=== PATIENT | male | born 1975 | race Caucasian/White ===

== ENCOUNTER 2017-04-26 07:58 | Emergency (ER) | payer MEDICARE, MEDICAID ==
[~2017-04-26] VITALS: Ht 165.1 cm; Wt 95.3 kg
[~2017-04-26 07:58] MED LIST: ACETAMINOPHEN325 M2 PO; ASPIRIN 81MG TA81 MG PO; BENZTROPINE1 MG PO; CITALOPRAM20 MG PO; DEPAKOTE 500MG500 MG PO; DEPAKOTE ER500 MG PO; KLONOPIN 0.5MG0.5 MG NG; LISINOPRIL 5MG T5 MG PO; LORAZEPAM1 MG/TABLE PO; LOVAZA1 GM PO; METFORMIN1000 MG PO; METOPROLOL SUCC25 M1 PO; RISPERDAL2 MG PO; RISPERDAL4 M1 PO; RISPERDAL4 MG; SEROQUEL300 MG PO; SIMVASTATIN20 MG PO; TRAZODONE 50MG50 MG PO; VITAMIN D1000 IU PO
[2017-04-26] MEDS ORDERED: DIVALPROEX DR500 MG PO ×2 (08:10)
[2017-04-26] MEDS ORDERED: ASPIRIN ADULT L81 M3 PO (08:11)
[2017-04-26] MEDS ORDERED: RISPERIDONE1 MG PO (08:12)
[2017-04-26] MEDS ORDERED: QUETIAPINE FUM200 MG PO (08:14)
[2017-04-26] MEDS ORDERED: CELEXA20 MG PO (08:15)
--- NOTE | 2017-04-26 08:18 | Emergency Room Report ---
History of Present Illness Time Seen by [id number] Comment The patient states that he slipped in the bathtub 2 days ago and fell landing on his back. He complains of back pain, predominantly in his lower back, but also upper thoracic spine, and RIGHT shoulder pain. He thinks he might have bumped his head. No loss of consciousness, headache, or vomiting. His upper back pain extends slightly into his neck. ALLERGIES Coded Allergies: Penicillins (Mild, 11/13/16) Home Medications Reported Medications TRAZODONE HCL (Trazodone HCl) 100 MG PO QHS Lorazepam (Lorazepam 1MG) 0.5 MG PO BID METFORMIN HCL (Metformin) 1,000 MG PO BID CHOLECALCIFEROL (VITAMIN D3) (Vitamin D3) 50,000 IUNITS PO WEEKLY Divalproex Sodium (Divalproex Dr) 1,000 MG PO QHS Divalproex Sodium (Divalproex Dr) 500 MG PO DAILY Aspirin (Aspirin EC) 81 MG PO DAILY #60 Risperidone 3 MG PO BID Quetiapine Fumarate (Quetiapine 200MG) 200 MG PO QHS CITALOPRAM HYDROBROMIDE (Citalopram HBr) 20 MG PO DAILY LISINOPRIL (Lisinopril) 5 MG PO DAILY OMEGA-3 ACID ETHYL ESTERS (Lovaza) 1 GM PO Metoprolol Succinate Xl (Metoprolol ER 25MG) 25 MG PO DAILY Simvastatin 20 MG PO DAILY History Medical History General CAD? No Angina: No AR: No Hypertension? No Hyperlipidemia? No CHF? No DVT? No PE? No COPD? No Asthma? No Anemia? No GERD? No Gastric ulcers? No GI Bleed? No Hernia? No Thyroid Problems? No Hypothyroidism? No CVA? No Seizures? No Diabetes? No Renal Insuffiency? No End Stage Renal Disease? No UTI? No Stones? No BPH? No GB Disease: No Nephritic Syndrome? No Asplenia? No Hepatitis? No Sickle Cell Disease? No Arthritis? No Migraines? No Cataracts? No Glaucoma? No MRSA? No HIV? No TB? No Anxiety? No Depression? No Cancer? No More? Yes Additional hx: PHYCHOSIS, MR, ATRIAL FLUTTER Immunization Hx DT/Tetanus Unknown Surgical Hx Previous Surgery?Y OPEN HEART 3 YRS. OLD Social History Smoking Hx Smoker: Never Smoker Tobacco: No Alcohol Alcohol: No Review of Systems All Other Systems Reviewed and Negative Gastrointestinal denies abdominal pain, denies vomiting Musculoskeletal back pain, joint pain Physical Exam Vital Signs Vital Signs Date Time Temp Pulse Resp B/P Pulse O2 O2 Flow FiO2 Ox Delivery Rate 04/26 1116 98.0 86 20 107/70 98 04/26 0952 98.0 86 20 107/70 98 04/26 0951 98.0 86 20 107/70 98 04/26 0759 97.9 78 18 138/85 97 General Appearance normal appearance, WD/WN Eye Exam - bilateral eye normal exam, bilateral eye PERRL, bilateral eye EOMI Ear, Nose, Throat hearing grossly normal, normal ENT inspection Neck normal inspection, non-tender, supple, full range of motion Respiratory Status Yes: trachea midline, chest symmetrical, non tender chest. No: respiratory distress. Lung Sounds bilateral: normal breath sounds, lungs clear. Cardiovascular normal exam, regular rate/rhythm, no peripheral edema, no gallop, no JVD, no murmur, no rub, normal peripheral pulses Peripheral Pulses Pulses normal Yes Gastrointestinal normal bowel sounds, normal exam, non tender, soft, no organomegaly Back normal inspection, mild lumbar and thoracic vertebral tenderness Extremities RIGHT shoulder tenderness. Normal range of motion. Neurovascular intact. No edema, ecchymosis, or effusion. 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 No Results/Orders Current Medication Orders Sig/Genevieve Start time Last Medication Dose Route Stop Time Status Admin Sodium Chloride 10 ML PRN PRN 04/26 830 DCD IV 04/27 821 Orders Procedure Date/time Status DIET-NOTHING BY MOUTH 04/26 L Active OP COURTSEY MEAL 04/26 1057 Active ELECTROCARDIOGRAM REQUEST 04/[address] SCAN REQUEST 04/[address] SCAN REQUEST 04/26 822 Active IV SALINE LOCK 04/[address] SCAN REQ 04/26 817 Complete 12 LEAD EKG-AUGUSTO (INITIAL) 04/26 UNK Active CM/EKG CM/EKG Comments EKG interpreted by Ray Tate MD: Rhythm: sinus Rate: 84 [place]on: normal Ectopy: none Conduction: Incomplete RIGHT bundle branch block ST Segment Changes: none T Wave Changes: none Q Waves: none No evidence of acute ischemia or injury Baseline artifact and wander present XRAY/CT/US XRAY/CT/US XRAY chest, pelvis, shoulder Comment Pelvis X-ray interpreted by Ray Tate MD. Negative for fracture, dislocation, or foreign body. Shoulder X-ray interpreted by Ray Tate MD. Negative for fracture, dislocation, or foreign body. Chest x-ray interpreted by Ray Tate M.D. No infiltrate, pneumothorax, pleural effusion, or wide mediastinum. CT C-spine, T-spine, L-spine Comment CT scan interpreted by radiologist: Cervical spine: No acute fracture. Mild cervical spondylosis. 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 Thoracic spine: No acute fracture. Spondylosis with degenerative disc disease and osteophytes. Lumbar spine: No acute fracture. Mild lumbar spondylosis. Degenerative disc disease L5-S1. Departure Departure Disposition DC Home or Self Care(routine) Clinical Impression Primary Impression: Lumbar strain Qualifiers: Encounter type: initial encounter Qualified Code: S39.012A - Strain of muscle, fascia and tendon of lower back, initial encounter Secondary Impressions: Cervical strain Qualifiers: Encounter type: initial encounter Qualified Code: S16.1XXA - Strain of muscle, fascia and tendon at neck level, initial encounter Fall in bathtub Qualifiers: Encounter type: initial encounter Qualified Code: W18.2XXA - Fall in (into) shower or empty bathtub, initial encounter Right shoulder strain Qualifiers: Encounter type: initial encounter Qualified Code: S46.911A - Strain of unspecified muscle, fascia and tendon at shoulder and upper arm level, right arm, initial encounter Thoracic myofascial strain Qualifiers: Encounter type: initial encounter Qualified Code: S29.019A - Strain of muscle and tendon of unspecified wall of thorax, initial encounter Condition STABLE Referrals Juni GALEANO,Franco Mcintyre (PCP/Family) Additional Instructions Tylenol for pain. Additional instructions for TRAUMA: See your physician as needed for further evaluation. Return to the emergency department immediately if severe chest pain, shortness of breath, abdominal pain , vomiting, severe neck pain, and this or weakness of arms or legs. ED Critical Care Critical Care No at 1125
--- NOTE | 2017-04-26 09:04 | RADIOLOGY REPORT PS360 ---
CT CERVICAL SPINE W/O CONT INDICATION: Neck pain following injury NECK AND BACK PAIN, RECENT FALL ORDERING PHYSICIAN: Ray Tate MD PATIENT AGE: 42 years COMPARISON: None TECHNIQUE: Axial images are obtained without contrast. Sagittal and coronal reformatted images are reviewed as well. FINDINGS: There is normal alignment. There is straightening of the cervical lordosis which may be due to patient positioning or muscle spasm. A defect is present in the posterior ring of C1. This is well-circumscribed and appears congenital. There is generalized spondylosis of the cervical spine with degenerative disc disease and facet and uncovertebral hypertrophy. C2-C3: Mild uncovertebral hypertrophy bilaterally with minimal right-sided foraminal narrowing. C3-C4: Minimal endplate osteophyte. C4-C5: Mild bilateral foraminal narrowing from uncovertebral hypertrophy. C5-C6: Mild degenerative disc disease. C6-C7: Mild degenerative disc disease with mild right lateral recess and foraminal narrowing from uncovertebral hypertrophy. No fracture or dislocation is evident. No lytic or blastic change. No prevertebral soft tissue swelling. There are scattered small lymph nodes in the neck. Lung apices are clear. IMPRESSION: 1. No acute fracture. 2. Mild cervical spondylosis as detailed above 3. Slight reversal cervical lordosis which may be due to patient positioning or muscle spasm. 4. 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
--- NOTE | 2017-04-26 09:07 | RADIOLOGY REPORT PS360 ---
CT THORACIC SPINE W/O CONTRAST INDICATION: Thoracic pain following injury NECK AND BACK PAIN, RECENT FALL ORDERING PHYSICIAN: Ray Tate MD PATIENT AGE: 42 years COMPARISON: None TECHNIQUE: Axial images are obtained without contrast. Sagittal and coronal reformatted images are reviewed as well. FINDINGS: There is normal alignment. No acute fracture or dislocation is evident. There is mild dextroscoliosis of the midthoracic spine. Multilevel osteophyte formation from T3 to T10 most severe at the T6-T10 level. There is mild degenerative disc disease in the mid and lower thoracic spine. No lytic or blastic change apparent. No paraspinal mass. IMPRESSION: 1. No acute fracture. 2. Thoracic spondylosis with degenerative disc disease and osteophytosis
--- NOTE | 2017-04-26 09:10 | RADIOLOGY REPORT PS360 ---
CT LUMBAR SPINE W/O CONTRAST CLINICAL INDICATION: Low back pain following injury LBP, RECENT FALL ORDERING PHYSICIAN: Ray Tate MD PATIENT AGE: 42 years COMPARISON: None TECHNIQUE:Axial, sagittal, and coronal images are generated and reviewed without contrast FINDINGS: Transitional segment is present at the L5-S1 junction and is labeled as S1. 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 No acute fracture or dislocation is evident. No lytic or blastic change. Mild bulging disc L4-L5 with mild facet and ligamentum hypertrophic change Degenerative disc disease with bulging disc at L5-S1 with partial calcification of the disc along the left aspect. There is mild bilateral foraminal narrowing. IMPRESSION: 1. No acute fracture. 2. Mild lumbar spondylosis. Degenerative disc disease L5-S1.
[2017-04-26 11:16] VITALS: BP 107/70
--- NOTE | 2017-04-26 11:19 | RADIOLOGY REPORT PS360 ---
CHEST(2 VIEWS-NOT PORTABLE) HISTORY: Chest pain following injury PAIN, RECENT FALL ORDERING PHYSICIAN: Ray Tate MD PATIENT AGE: 42 years COMPARISON: 11/13/2016 FINDINGS: The cardiomediastinal silhouette and pulmonary vascularity are within normal limits. There has been a prior median sternotomy with small sternotomy wires noted The lungs are clear without infiltrates, suspicious nodules, or pleural effusions. No acute bony abnormalities. Mild degenerative change thoracic spine IMPRESSION: No acute finding
--- NOTE | 2017-04-26 11:20 | RADIOLOGY REPORT PS360 ---
[id number] VIEWS HISTORY: PAIN, RECENT FALL ORDERING PHYSICIAN: Ray Tate MD PATIENT AGE: 42 years COMPARISON: None FINDINGS: No fracture or dislocation. No lytic or blastic change. There is normal mineralization. The joint spaces are well-preserved. No significant degenerative/arthritic changes. No erosive changes evident. There is mild subacromial stenosis IMPRESSION: No acute finding. Mild subacromial stenosis
--- NOTE | 2017-04-26 11:21 | RADIOLOGY REPORT PS360 ---
PELVIS AP ONLY HISTORY: Fall with injury and pain PAIN, RECENT FALL ORDERING PHYSICIAN: Ray Tate MD PATIENT AGE: 42 years COMPARISON: None FINDINGS: No fracture or dislocation is evident. Mild osteoarthritic changes are present involving both hips with mild osteophyte formation along the inferior aspect of the acetabulum. IMPRESSION: No acute finding. Mild osteoarthritis of the hips
== END 2017-04-26 11:16 | disposition home or self-care (01) ==
LOC: ER 07:58
DX: S39.012A Strain of muscle, fascia and tendon of lower back, initial encounter (principal); S16.1XXA Strain of muscle, fascia and tendon at neck level, initial encounter; S46.911A Strain of unspecified muscle, fascia and tendon at shoulder and upper arm level, right arm, initial encounter; S29.019A Strain of muscle and tendon of unspecified wall of thorax, initial encounter; W18.2XXA Fall in (into) shower or empty bathtub, initial encounter; Y93.89 Activity, other specified; Y92.002 Bathroom of unspecified non-institutional (private) residence as the place of occurrence of the external cause; Z88.0 Allergy status to penicillin; Z79.84 Long term (current) use of oral hypoglycemic drugs; Z79.82 Long term (current) use of aspirin; Z79.899 Other long term (current) drug therapy